=== PATIENT | male | born 2000 | race Hispanic/Latino ===

== ENCOUNTER 2024-03-26 22:49 | Emergency (ER) | payer SELFPAY ==
[2024-03-26] MEDS ORDERED: Ibuprofen 200 MG TAB ONE (23:26)
== END 2024-03-27 00:39 | disposition home or self-care (01) ==
LOC: CSHERS 22:49
DX: H66.001 Acute suppurative otitis media without spontaneous rupture of ear drum, right ear (principal)
CPT/HCPCS: 99282